=== PATIENT | female | born 1945 | race African-American/Black ===

== ENCOUNTER 2017-07-08 20:08 | Emergency (ER) | payer OTHER ==
--- NOTE | 2017-07-08 20:47 | PDOC ---
Rapid Medical Evaluation Time Seen by Provider: 07/08/17 20:38 Medical Evaluation: 07/08/17 20:38 I have performed a brief in-person evaluation of this patient. The patient presents with a chief complaint of: weakness + body aches, subjective fever & chills x 8 days, runny nose + cough, abdominal pain. hx of HTN Pertinent physical exam findings: fine crackles LLL I have ordered the following: CXR The patient will proceed to the ED for further evaluation. Discharge Disposition - Diagnosis Weakness - Referrals - Patient Instructions - Post Discharge Activity
[2017-07-08 21:02] VITALS: BMI 26.6
--- NOTE | 2017-07-09 00:07 | PDOC ---
History of Present Illness - General Chief Complaint: Pain Stated Complaint: HEADACHE/FEVER Time Seen by Provider: 07/08/17 20:38 - History of Present Illness Initial Comments: 07/09/17 00:06 CHIEF COMPLAINT: cold symptoms HISTORY OF PRESENT ILLNESS: 72 yo F with PMH of HTN presents to ED with weakness + body aches, subjective fever & chills x 8 days, runny nose + cough, abdominal pain. Patient denies any vomiting, diarrhea, chest pain, shortness of breath, headache. PAST MEDICAL HISTORY: Denies past medical history FAMILY HISTORY: Denies SOCIAL HISTORY: Denies tobacco, alcohol, illicit drug use. SURGICAL HISTORY: Denies ALLERGIES: No known drug allergies REVIEW OF SYSTEMS General/Constitutional: Subjective fever, weakness, body aches. HEENT: Runny nose. Denies change in vision. Denies ear pain or discharge. Denies sore throat. Cardiovascular: Denies chest pain or shortness of breath. Respiratory: Cough. Denies wheezing, or hemoptysis. Gastrointestinal: Denies nausea, vomiting, diarrhea or constipation. Denies rectal bleeding. Genitourinary: Denies dysuria, frequency, or change in urination. Musculoskeletal: Denies joint or muscle swelling or pain. Denies neck or back pain. Skin and breasts: Denies rash or easy bruising. Neurologic: Denies headache, vertigo, loss of consciousness, or loss of sensation. PHYSICAL EXAM General Appearance: Well-appearing, appropriately dressed. No apparent distress , no intoxication. HEENT: EOMI, PERRLA, normal ENT inspection, normal voice, TMs normal, pharynx normal. No conjunctival pallor. No photophobia, scleral icterus. Respiratory/Chest: Lungs CTAB. Cardiovascular: RRR. S1, S2. Gastrointestinal/Abdominal: Normal bowel sounds. Abdomen soft, non-distended. No tenderness or rebound tenderness. No organomegaly, pulsatile mass, guarding , hernia, hepatomegaly, splenomegaly. Musculoskeletal/Extremities: Normal inspection. FROM of all extremities, normal capillary refill. Pelvis Stable. No CVA tenderness. No tenderness to extremities, pedal edema, swelling, erythema or deformity. Integumentary: Appropriate color, dry, warm. 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 Fully oriented, alert. Appropriate mood/affect. Motor strength 5/5. No appreciable EOM palsy, facial droop or sensory deficit. Past History - Past Medical History Allergies/Adverse Reactions: Allergies Allergy/AdvReac Type Severity Reaction Status Date / Time No Known Allergies Allergy Verified 07/08/17 20:44 Home Medications: Ambulatory Orders Azithromycin [Zithromax 250mg Tablets -] 250 mg PO ASDIR #6 tablet 07/09/17 COPD: No HTN: Yes - Suicide/Smoking/Psychosocial Hx Smoking History: Never smoked Have you smoked in the past 12 months: No Information on smoking cessation initiated: No Hx Alcohol Use: No Drug/Substance Use Hx: No Substance Use Type: None *Physical Exam - Vital Signs Last Vital Signs Temp Pulse Resp BP Pulse Ox 98.4 F 64 18 184/90 100 07/08/17 20:45 07/08/17 20:45 07/08/17 20:45 07/08/17 20:45 07/08/17 20:45 ED Treatment Course - LABORATORY CBC & Chemistry Diagram: 07/08/17 00:21 07/08/17 00:21 - ADDITIONAL ORDERS Additional order review: 07/08/17 20:51 Influenza Types A,B Antigen ([facility]) - Final Nasopharyngeal Swab - Final - RADIOLOGY Radiology Studies Ordered: Category Date Time Status CHEST PA & LAT [RAD] Stat Radiology 07/09/17 00:02 Ordered Medical Decision Making - Medical Decision Making 72 yo F with PMH of HTN presents to ED with weakness + body aches, subjective fever & chills x 8 days, runny nose + cough, abdominal pain. Patient is in ER with daughter with similar symptoms. -flu swab -CBC, CMP, Mg, card prof -CXR CXR with minimal consolidation to RLL. Concern for pneumonia vs URI, will d/c with abx labs WNL flu negative. Advised patient to take medications as prescribed and follow up with PMD. Advised patient of signs and symptoms for return to ED. Patient verbalized understanding and agrees to plan. *DC/Admit/Observation/Transfer Diagnosis at time of Disposition: Weakness, Cough - Discharge Dispostion Disposition: HOME Condition at time of disposition: Stable Admit: No - Prescriptions Prescriptions: Azithromycin [Zithromax 250mg Tablets -] 250 mg PO ASDIR #6 tablet - Referrals Referrals: Vance Saez MD [Primary Care Provider] - - Patient Instructions Printed Discharge Instructions: DI for Pneumonia -- Adult Additional Instructions: Please take medications as prescribed and complete the ENTIRE course of antibiotics, even if your symptoms improve. Please continue taking your medications for high blood pressure as prescribed by your doctor. Follow up with your primary care doctor this week as discussed. If you develop any chest pain, shortness of breath, fever, chills, vomiting, diarrhea, or any new or worsening symptoms, please return to the ER . - Post Discharge Activity
[2017-07-09 00:40] LABS: EOS % 0.5 % (0-4.5); HEMATOCRIT 39.6 % (32.4-45.2); HEMOGLOBIN 12.7 GM/dL (10.7-15.3); LYMPH % 54.4 % (8-40); MCH 28.6 pg (25.7-33.7); MCHC 32.1 g/dl (32.0-36.0); MEAN CELL VOLUME 88.9 fl (80-96); MEAN PLT VOLUME 9.4 fl (7.5-11.1); MONO % 10.3 % (3.8-10.2); NEUT % 33.8 % (42.8-82.8); PLATELET COUNT 265 K/MM3 (134-434); RBC 4.46 M/mm3 (3.60-5.2); RDW 13.1 % (11.6-15.6); WHITE BLOOD COUNT 4.9 K/mm3 (4.0-10.0)
[2017-07-09 01:06] LABS: ALBUMIN 3.6 g/dl (3.4-5.0); ANION GAP 6 (8-16); BILIRUBIN,TOTAL 0.4 mg/dL (0.2-1.0); BLOOD UREA NITROGEN 7 mg/dL (7-18); CALCIUM 8.9 mg/dL (8.5-10.1); CHLORIDE 108 mmol/L (98-107); CO2 29 mmol/L (21-32); CREATININE 0.7 mg/dL (0.55-1.02); GLUCOSE,RANDOM 94 mg/dL (74-106); POTASSIUM 4.4 mmol/L (3.5-5.1); SGOT/AST 20 U/L (15-37); SGPT/ALT 29 U/L (12-78); SODIUM 143 mmol/L (136-145); TOT PROT 7.7 g/dl (6.4-8.2)
[2017-07-09 01:08] LABS: ALK PHOS 69 U/L (45-117)
[2017-07-09 02:26] VITALS: BP 170/93; PULSE 58; TEMP 97.9
== END 2017-07-09 02:09 | disposition home or self-care (01) ==
LOC: JER 20:08
DX: J18.9 Pneumonia, unspecified organism (principal); I10 Essential (primary) hypertension
CPT/HCPCS: 36415; 71046-TC; 80053; 82550; 84484; 85025; 87040; 87804; 99282-25